=== PATIENT | male | born 2000 | race Caucasian/White ===

== ENCOUNTER 2021-04-04 19:41 | Emergency (ER) | payer OTHER ==
[~2021-04-04] VITALS: Ht 165.1 cm; Wt 65.8 kg
[2021-04-04 19:41] VITALS: BP 121/74
[2021-04-04] MEDS ORDERED: CYCL5TAB PO (21:33)
[2021-04-04] MEDS ORDERED: IBUP-1955 PO (21:33)
[2021-04-04] MEDS ORDERED: CYCLOBENZAPRINE 10 MG TABLET PO ONE (22:00)
[2021-04-04] MEDS ORDERED: CYCLOBENZAPRINE 10 MG TABLET ONE (22:03)
== END 2021-04-04 22:19 | disposition home or self-care (01) ==
LOC: ER 19:46
DX: M25.511 Pain in right shoulder (principal)
CPT/HCPCS: 73030-TC